=== PATIENT | female | born 1980 | race American Indian/Alaskan Native ===

== ENCOUNTER 2018-01-06 10:14 | Outpatient (CLI) | payer OTHER ==
--- NOTE | 2018-01-06 13:36 | XRay Report ---
LUMBOSACRAL SPINE, 3 VIEWS: History: Back pain Findings: Normal bone mineralization. Normal height and alignment of the lumbar vertebral bodies. No evidence for fracture, bone lesion or malalignment. Mild disc space narrowing and facet arthropathy are identified at L5-S1. Impression: Mild degenerative changes at L5-S1. No evidence for injury.
--- NOTE | 2018-01-06 13:37 | XRay Report ---
AP PELVIS: HISTORY: Pelvic pain. AP view of the pelvis shows normal pelvic contour and soft tissues. The hips are symmetric and within normal limits as are the sacroiliac joints. IMPRESSION: Normal pelvis.
--- NOTE | 2018-01-06 13:37 | XRay Report ---
RIGHT KNEE, 2 views: History: Right knee pain. The bony architecture is intact without evidence of fracture or dislocation. No significant soft tissue abnormality is seen. IMPRESSION: Normal right knee.
--- NOTE | 2018-01-06 13:37 | XRay Report ---
ROUTINE CHEST, TWO VIEWS: HISTORY: chest pain. The trachea, heart, mediastinal contour, lung reeves and bony thorax are unremarkable. IMPRESSION: Normal chest x-ray.
== END 2018-01-06 10:15 | disposition home or self-care (01) ==
LOC: PF 10:14 → XRAY 10:14
PROVIDERS: ATTEND Internal Medicine
DX: Z02.71 Encounter for disability determination (principal); M47.897 Other spondylosis, lumbosacral region; R07.9 Chest pain, unspecified; M25.561 Pain in right knee; M25.552 Pain in left hip; M25.551 Pain in right hip; E66.01 Morbid (severe) obesity due to excess calories; I10 Essential (primary) hypertension; J45.909 Unspecified asthma, uncomplicated
CPT/HCPCS: 71046; 72100; 72170